=== PATIENT | male | born 1985 | race Caucasian/White ===

== ENCOUNTER 2023-03-28 05:44 | Emergency (ER) | payer OTHER ==
[~2023-03-28] VITALS: Ht 180.3 cm; Wt 99.8 kg
[~2023-03-28 05:44] MED LIST: CEFUROXIME500 MG PO; ORASEP SPRAY30 ML MM
[2023-03-28] MEDS ORDERED: DICLOFENAC POTA50 MG PO (08:11)
[2023-03-28] MEDS ORDERED: NORFLEX100MG PO (08:11)
== END 2023-03-28 08:25 | disposition home or self-care (01) ==
LOC: ER 05:44
DX: R07.89 Other chest pain (principal); M54.59 Other low back pain; M54.2 Cervicalgia

== ENCOUNTER → 2023-09-20 | Emergency (ER) | payer OTHER ==
[~2023-09-20] VITALS: Ht 180.3 cm; Wt 97.5 kg
[~2023-09-20] MED LIST changes: +DICLOFENAC POTA50 MG PO; +NORFLEX100MG PO
== END | disposition left against medical advice (07) ==
LOC: ER 05:32
DX: Z53.21 Procedure and treatment not carried out due to patient leaving prior to being seen by health care provider (principal)